=== PATIENT | female | born 1985 | race Two or more races ===

== ENCOUNTER 2019-10-06 06:42 | Inpatient (IN) ==
[2019-10-06] MEDS ORDERED: LACTATED RINGERS 1,000 ML IV ONE ×2 (07:22→09:02)
[2019-10-06] MEDS ORDERED: FAMOTIDINE 20 MG/2 ML VIAL IV ONE (07:57)
[2019-10-06] MEDS ORDERED: CITRIC ACID/SODIUM CITRATE 30 ML UDCUP PO ONE (07:57)
[2019-10-06] MEDS ORDERED: ceFAZolin 2,000 MG in PREMIX 1 EACH IV ONE (07:57)
[2019-10-06 08:11] LABS: Basophils % 0.2 % (0.0-0.8); Eosinophils % 0.7 % (0.00-10.9); Hemoglobin 11.6 GM/DL (12.0-16.0); Immature Granulocytes % 0.3 %; Immature Granulocytes Absolute 0.02 #; Lymphocytes # 1.3 10*3/uL (1.4-4.0); Lymphocytes % 20.8 % (21.3-54.2); Mean Corpuscular HGB Conc 32.2 GM/DL (32-36); Mean Platelet Volume 10.5 FL (9.6-12.0); Monocytes % 9.7 % (1.7-12.7); Neutrophils % 68.3 % (38.7-73.9); Platelet Count 196 T/CUMM (130-400); Red Blood Count 3.83 MC/CUMM (3.8-5.5); Red Cell Distribution Width 14.8 % (9.3-17.3); White Blood Count 6.1 T/CUMM (4-12)
[2019-10-06] MEDS ORDERED: OXYTOCIN 10 UNIT/ML VIAL ONE (09:23)
[2019-10-06] MEDS ORDERED: OXYTOCIN 10 UNIT/ML VIAL IM ONE (09:24)
[2019-10-06] MEDS ORDERED: OXYTOCIN/LR 30 UNIT/1,000 ML BAG IV ONE (09:24)
[2019-10-06] MEDS ORDERED: BUPIVACAINE MPF 0.25% 30 ML VIAL ONE (10:18)
[2019-10-06] MEDS ORDERED: BUPIVACAINE MPF 0.5% /EPI 30 ML VIAL ONE (10:23)
[2019-10-06 10:38] LABS: Apearance,Urine CLEAR (Clear); Bacteria,Urine Occasional /HPF (Few); Bilirubin,Urine Negative (Negative); Blood, Urine Negative (Negative); Glucose,Urine (UA) Negative (Negative); Ketones,Urine 20 mg/dL (Negative); Mucus,Urine Occasional /LPF (Occasional); Nitrite,Urine Negative (Negative); Protein,Urine Negative; Urine Color Straw (Yellow); Urine Specific Gravity 1.006 (1.001-1.035); Urine Urobilinogen < 2.0 EU/DL (0.2-1.0); WBC,Urine <1 /HPF (0-6)
[2019-10-06 10:46] LABS: Cord Venous Blood HCO3 22.3 MMOL/L; Cord Venous Blood PCO2 44.5 MMHG; Cord Venous Blood PO2 27.5
[2019-10-06] MEDS ORDERED: OXYTOCIN/LR 20 UNIT/1,000 ML BAG IV ONE (10:47)
[2019-10-06] MEDS ORDERED: ACETAMINOPHEN 325 MG TABLET PO PRN (10:47)
[2019-10-06] MEDS ORDERED: SIMETHICONE CHEW 80 MG TABLET PO PRN (10:47)
[2019-10-06] MEDS ORDERED: ONDANSETRON 4 MG/2 ML VIAL IV PRN (10:47)
[2019-10-06] MEDS ORDERED: RHO(D) IMMUNE GLOBULIN 300 MCG SYRINGE IM ONE (10:47)
[2019-10-06] MEDS ORDERED: BUPIVACAINE SPINAL 0.75% 2 ML AMP SPINAL ONE (10:58)
[2019-10-06] MEDS ORDERED: DEXAMETHASONE 4 MG/1 ML VIAL ONE (10:59)
[2019-10-06] MEDS ORDERED: ONDANSETRON 4 MG/2 ML VIAL ONE (10:59)
[2019-10-06] MEDS ORDERED: MORPHINE 10 MG/10 ML VIAL ONE (11:00)
[2019-10-06] MEDS ORDERED: LACTATED RINGERS 1,000 ML IV SCH (11:00)
[2019-10-06] MEDS: ceFAZolin 1,000 MG in SYRINGE 1 EACH IV SCH (17:53)
[2019-10-06 18:22] LABS: Basophils % 0.2 % (0.0-0.8); Hematocrit 32.6 VOL% (35.7-47.0); Hemoglobin 10.5 GM/DL (12.0-16.0); Immature Granulocytes % 0.7 %; Immature Granulocytes Absolute 0.09 #; Lymphocytes # 0.7 10*3/uL (1.4-4.0); Lymphocytes % 5.7 % (21.3-54.2); Mean Corpuscular HGB Conc 32.2 GM/DL (32-36); Mean Corpuscular Volume 93.9 FL (87-102); Mean Platelet Volume 10.1 FL (9.6-12.0); Monocytes % 3.6 % (1.7-12.7); Neutrophils % 89.8 % (38.7-73.9); Platelet Count 173 T/CUMM (130-400); Red Blood Count 3.47 MC/CUMM (3.8-5.5); Red Cell Distribution Width 14.8 % (9.3-17.3); White Blood Count 12.9 T/CUMM (4-12)
[2019-10-07] MEDS: ceFAZolin 1,000 MG in SYRINGE 1 EACH IV SCH (02:35)
[2019-10-07] MEDS: METOCLOPRAMIDE 10 MG TABLET PO SCH ×3 (02:55→16:17)
[2019-10-07] MEDS: DOCUSATE SODIUM 100 MG CAPSULE PO SCH ×3 (02:55→21:17)
[2019-10-07 06:44] LABS: Basophils % 0.1 % (0.0-0.8); Eosinophils % 0.2 % (0.00-10.9); Hematocrit 29.4 VOL% (35.7-47.0); Hemoglobin 9.5 GM/DL (12.0-16.0); Immature Granulocytes % 0.6 %; Immature Granulocytes Absolute 0.05 #; Lymphocytes # 1.6 10*3/uL (1.4-4.0); Lymphocytes % 17.7 % (21.3-54.2); Mean Corpuscular HGB Conc 32.3 GM/DL (32-36); Mean Corpuscular Volume 94.8 FL (87-102); Mean Platelet Volume 9.9 FL (9.6-12.0); Monocytes % 7.2 % (1.7-12.7); Neutrophils % 74.2 % (38.7-73.9); Platelet Count 162 T/CUMM (130-400); Red Cell Distribution Width 14.8 % (9.3-17.3); White Blood Count 8.9 T/CUMM (4-12)
[2019-10-07] MEDS: MAGNESIUM HYDROXIDE SUSP 30 ML UDCUP PO PRN ×2 (08:11→21:17)
[2019-10-07] MEDS: MULTIVITAMIN (PRENATAL) TABLET PO SCH (08:11)
[2019-10-07] MEDS: FERROUS SULFATE 325 MG TABLET PO SCH (09:20)
[2019-10-07] MEDS: IBUPROFEN 800 MG TABLET PO PRN (21:17)
[2019-10-08] MEDS ORDERED: BISACODYL 10 MG SUPP RECTAL PRN (01:31)
[2019-10-08] MEDS: METOCLOPRAMIDE 10 MG TABLET PO SCH ×3 (01:32→10:03)
[2019-10-08] MEDS: MULTIVITAMIN (PRENATAL) TABLET PO SCH (10:00)
[2019-10-08] MEDS: FERROUS SULFATE 325 MG TABLET PO SCH (10:00)
[2019-10-08] MEDS: MAGNESIUM HYDROXIDE SUSP 30 ML UDCUP PO PRN (10:00)
[2019-10-08] MEDS: DOCUSATE SODIUM 100 MG CAPSULE PO SCH (10:00)
[2019-10-08] MEDS: IBUPROFEN 800 MG TABLET PO PRN (10:01)
[2019-10-08 12:35] VITALS: BP 115/68
[2019-10-08] MEDS ORDERED: INFLUENZA VIRUS VACCINE 0.5 ML SYRINGE IM ONE (14:36)
[2019-10-08] MEDS ORDERED: DIPH/TET/ACEL PERT BOOSTER VACCINE 0.5 ML VIAL IM ONE (14:36)
== END 2019-10-08 16:50 | disposition home or self-care (01) | DRG 788 ==
LOC: N.LDOUT 06:42 → N.LD 06:45 → N.OB 14:22
PROVIDERS: ADMIT Obstetrics & Gynecology; ATTEND Obstetrics & Gynecology
PROC: LDCSECT (ICD-10-PCS; 2019-10-06 08:30)